=== PATIENT | male | born 1995 | race Two or more races ===

== ENCOUNTER 2017-08-01 10:58 | Emergency (ER) | payer OTHER ==
[~2017-08-01] VITALS: Ht 172.7 cm; Wt 95.2 kg
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
[~2017-08-01 10:58] MED LIST: BENADRYL25 M3 PO; MEDROL4 MG/DOSE- PO; TAGAMET PO
== END 2017-08-01 12:54 | disposition home or self-care (01) ==
LOC: SED 10:58
DX: S13.4XXA Sprain of ligaments of cervical spine, initial encounter (principal); S23.3XXA Sprain of ligaments of thoracic spine, initial encounter; S33.5XXA Sprain of ligaments of lumbar spine, initial encounter; V49.40XA Driver injured in collision with unspecified motor vehicles in traffic accident, initial encounter; Y93.89 Activity, other specified; Y92.410 Unspecified street and highway as the place of occurrence of the external cause
CPT/HCPCS: 72040; 72072; 72100; 99284